=== PATIENT | female | born 1980 | race Caucasian/White ===

== ENCOUNTER 2018-09-14 11:42 | Emergency (ER) | payer OTHER ==
[~2018-09-14] VITALS: Ht 152.4 cm; Wt 53.1 kg
[2018-09-14] MEDS ORDERED: NEURONTIN300 MG (12:18)
[2018-09-14] MEDS ORDERED: [UNRECOGNIZED DRUG - OTHER] (12:20)
[2018-09-14] MEDS ORDERED: MEDROLPACK PO (14:45)
[2018-09-14] MEDS ORDERED: ZITHROMAX500 MG PO (14:45)
[2018-09-14] MEDS ORDERED: ULTRACET PO (14:45)
== END 2018-09-14 15:10 | disposition home or self-care (01) ==
LOC: ER 11:42
DX: G44.009 Cluster headache syndrome, unspecified, not intractable (principal)

== ENCOUNTER 2018-10-07 00:22 | Inpatient (IN) | payer OTHER ==
[~2018-10-07] VITALS: Ht 154.9 cm; Wt 52.2 kg
[~2018-10-07 00:22] MED LIST: MEDROLPACK PO; NEURONTIN300 MG; ULTRACET PO; ZITHROMAX500 MG PO; [UNRECOGNIZED DRUG - OTHER]
--- NOTE | 2018-10-07 00:39 | NUR ---
PACIENTE ALERTA Y ORIENTADA X3. REFIERE VENIR POR DOLOR DE AYANNA DESDE HACE UN MES. PACIENTE REFIERE KAUR ESTADO VISITANDO VARIOS MEDICOS PORQUE AUN CON EL TRATAMIENTO OFRECIDO POR ELLOS NO MEJORA. REFIERE CUANDO LE DA EL DOLOR DE AYANNA CHETNA SE LE HINCHAN LOS PARPADOS.
--- NOTE | 2018-10-07 02:27 | NUR ---
MS MCKENNAT ORIENTA A PACIENTE SOBRE ORDENES MEDICAS. ADMINISTRA MEDICAMENTOS, CANALIZA PACIENTE Y COLECTA MUESTRAS DE LABORATORIO ORDENADAS BAJO MEDIDAS ASEPTICAS. PENDIENTE A RESULTADOS DE LABORATORIO Y CT SCAN PARA RE-EVALUACION MEDICA.
--- NOTE | 2018-10-07 02:58 | NUR ---
PTE AL MOMENTO ESTABLE, SIGNOS VITALES ESTABLES, ALERTA Y ORIENTADA X3 ACOMPANADA DE FAMILIAR, SE ADMINISTRAN MEDICAMENTOS PARA EL DOLOR, SE CONTINUA MONITOREANDO POR CABMIOS SIGNIFICATIVOS, AL MOMENTO PACIENTE TOLERANDO [place] MEDICO ORDENADO.
--- NOTE | 2018-10-07 07:32 | NUR ---
PACIENTE ALERTA Y ORIENTADA EN ISADORA HUA ESFERAS, PRESENTA BUEN PATRON RESPIRATORIO, REFIERE DOLOR DE AYANNA RECURRENTE, SE NOTIFICA A KRYSTYNA COLTON QUIEN ORDENA 50 MG DE PHENERGAN IM. MR CORDOVA COLECTA MUESTRA DE RASHAD PARA LIVER PROFILE.
[2018-10-09] MEDS ORDERED: CEFTRIAXONE2 G1 IV (10:34)
[2018-10-09] MEDS ORDERED: MEDROLPACK PO (10:35)
== END 2018-10-09 19:54 | disposition home or self-care (01) | DRG 103 ==
LOC: ER 00:22 → MEDJ 11:52 → MEDI 11:52
PROVIDERS: ADMIT Internal Medicine
PROC: B92 Imaging, Ear, Nose, Mouth and Throat, Computerized Tomography (CT Scan) (ICD-10-PCS; principal; 2018-10-07)
DX: G44.001 Cluster headache syndrome, unspecified, intractable (principal); J32.2 Chronic ethmoidal sinusitis; E05.80 Other thyrotoxicosis without thyrotoxic crisis or storm